=== PATIENT | male | born 1945 | race Hispanic/Latino ===

== ENCOUNTER 2016-07-25 13:28 | Observation (INO) | payer MEDICARE, OTHER ==
[~2016-07-25 13:28] MED LIST: Ferric Sodium Gluconat Complex 62.5 mg/5 ml Vial IVPB SCH
[2016-07-25 14:54] LABS: BASO % 0.7 % (0.0-2.0); EOS # 0.2 K/uL (0.0-0.7); EOS % 2.8 % (0.0-4.0); HEMATOCRIT 17.2 % (35.0-51.0); LYMPH # 1.2 K/uL (1.0-4.3); LYMPH % 17.4 % (20.0-40.0); MEAN CELL VOLUME 94.1 fL (80.0-94.0); MEAN PLATELET VOLUME 7.9 fL (7.2-11.7); MONO # 0.7 K/uL (0.0-0.8); MONO % 10.6 % (0.0-10.0); RED CELL DISTRIBUTION WIDTH 16.5 % (11.5-14.5); WHITE BLOOD COUNT 6.8 K/uL (4.8-10.8)
[2016-07-25 15:04] LABS: POTASSIUM 3.2 mmol/L (3.6-5.2)
[2016-07-25 15:06] LABS: ALB/GLOB RATIO 0.9 (1.0-2.1); BILIRUBIN,TOTAL 0.5 mg/dL (0.2-1.3); TOTAL PROTEIN 6.2 g/dL (6.3-8.3)
[2016-07-25 15:07] LABS: CALCIUM 7.3 mg/dl (8.6-10.4)
[2016-07-25] MEDS ORDERED: [UNRECOGNIZED DRUG - OTHER] IV ONE (15:57)
--- NOTE | 2016-07-25 16:14 | C.PDOC ---
History Of Present Illness 71 y/o male sent to ED from dialysis for evaluation. While at dialysis, dialysis needle got dislodged and before it was noticed he was covered in blood. Pt has no active complaints at this time. No active bleeding in ED. Time Seen by Provider: 07/25/16 14:36 Chief Complaint (Nursing): Medical Clearance History Per: Patient History/Exam Limitations: no limitations Recent travel outside of the [place]: No Past Medical History Reviewed: Historical Data, Nursing Documentation, Vital Signs Vital Signs: Last Vital Signs Temp Pulse 84 07/25/16 15:19 Resp 19 07/25/16 15:19 BP 115/58 L 07/25/16 15:19 Pulse Ox 100 07/25/16 16:17 - Medical History PMH: Anxiety, COPD, HTN, End Stage Renal Disease, Seizures Family History: States: Unknown Family Hx - Social History Hx Alcohol Use: No Hx Substance Use: No Review Of Systems Except As Marked, All Systems Reviewed And Found Negative. Physical Exam - Physical Exam Appears: Non-toxic, No Acute Distress Skin: Warm, Dry, No Rash Head: Atraumatic, Normacephalic Neck: Normal, Normal ROM, Supple Chest: Symmetrical Cardiovascular: Rhythm Regular, No Murmur Respiratory: Normal Breath Sounds, No Rales, No Rhonchi, No Wheezing Gastrointestinal/Abdominal: Normal Exam, Soft, No Tenderness Extremity: Normal ROM, Other (graft to left forearm) Pulses: Left Radial: Normal, Right Radial: Normal Neurological/Psych: Oriented x3, Normal Speech, Normal Cognition ED Course And Treatment - Laboratory Results Result Diagrams: 07/25/16 14:51 07/25/16 14:51 O2 Sat by Pulse Oximetry: 100 (room air) Pulse Ox Interpretation: Normal Progress Note: Discussed case with Garth Barboza, patient usual hemoglobin 7.5 , today 5.7, recommended observation for transfusion during dialysis, admission to hospitalist. Case also discussed with hospitalist Blanca. Disposition - Disposition Disposition: HOSPITALIZED Disposition Time: 16:22 Condition: FAIR - Clinical Impression Clinical Impression: ESRD (end stage renal disease) on dialysis, Anemia - Scribe Statement The provider has reviewed the documentation as recorded by the Amarilis Colin Provider Attestation: All medical record entries made by the Amarilis were at my direction and personally dictated by me. I have reviewed the chart and agree that the record accurately reflects my personal performance of the history, physical exam, medical decision making, and the department course for this patient. I have also personally directed, reviewed, and agree with the discharge instructions and disposition.
--- NOTE | 2016-07-25 17:03 | CP.PCM.HP ---
<Kate Camara - Last Filed: 07/25/16 17:28> History of Present Illness - History of Present Illness History of Present Illness: 71 y/o male sent to ED from dialysis for evaluation. While at dialysis, dialysis needle got dislodged and before it was noticed he was covered in blood. Pt has no active complaints at this time. No active bleeding in ED. He complains of dizziness and mild shortness of breath. He denies chest pain, palpitations, head aches, changes in vision, other symptoms. He complains of chronic pain in the lower ext b/l and numbness in his hands "from diabetes". He has a peg in place but states he does eat and drink. PMHx - dysphagia, DM, COPD, HTN, ESRD, seizures Meds - as listed in meds rec Allergies - morphine Fam Hx - noncontributory Surg - denies but states he is missing a kidney "it just went away) Social - used to smoke a pack a year since 15 years of age he said he quit 2 weeks ago, admits to drug use when he was younger, denies alcohol use but states he used to drink when he was younger Present on Admission - Present on Admission Any Indicators Present on Admission: No Review of Systems - Review of Systems Systems not reviewed;Unavailable: Altered Mental Status, Other Review of Systems: Poor Historian - Constitutional Constitutional: absent: Chills, Fever, Headache - EENT Eyes: absent: Blurred Vision, Change in Vision - Cardiovascular Cardiovascular: absent: Chest Pain, Chest Pain at Rest, Palpitations, Pedal Edema - Respiratory Respiratory: absent: Cough, Dyspnea, Dyspnea on Exertion - Gastrointestinal Gastrointestinal: absent: Abdominal Pain, Constipation, Diarrhea, Nausea, Vomiting - Genitourinary Genitourinary: absent: Change in Urinary Stream, Difficulty Urinating - Neurological Neurological: absent: Headaches, Tingling, Weakness Past Patient History - Infectious Disease Hx of Infectious Diseases: None - Past Social History Smoking Status: Never Smoked - CARDIAC Hx Hypertension: Yes - PULMONARY Hx Chronic Obstructive Pulmonary Disease (COPD): Yes - NEUROLOGICAL Hx Seizures: Yes - RENAL Hx Dialysis: Yes Type of Dialysis Access: LEFT AV SHUNT Date of Last Dialysis Treatment: 07/25/16 - ENDOCRINE/METABOLIC Hx Diabetes Mellitus Type 1: Yes - PSYCHIATRIC Hx Anxiety: Yes Hx Substance Use: No Meds Allergies/Adverse Reactions: Allergies Allergy/AdvReac Type Severity Reaction Status Date / Time morphine Allergy Verified 07/25/16 14:42 Physical Exam - Constitutional Appears: Non-toxic, No Acute Distress, Older Than Stated Age, Chronically Ill - Head Exam Head Exam: ATRAUMATIC, NORMAL INSPECTION - Eye Exam Eye Exam: EOMI, Normal appearance, PERRL Pupil Exam: NORMAL ACCOMODATION Additional comments: Pale conjunctiva - ENT Exam ENT Exam: Mucous Membranes Dry - Respiratory Exam Respiratory Exam: Clear to Auscultation Bilateral, NORMAL BREATHING PATTERN. absent: Respiratory Distress - Cardiovascular Exam Cardiovascular Exam: REGULAR RHYTHM, +S1, +S2 - GI/Abdominal Exam GI & Abdominal Exam: Normal Bowel Sounds, Soft. absent: Distended, Firm, Guarding, Tenderness Additional comments: PEG in place - Extremities Exam Extremities exam: Positive for: normal inspection Additional comments: scrapes on frontal part of tibia b/l lega - Back Exam Back exam: NORMAL INSPECTION. absent: CVA tenderness (L), CVA tenderness (R), paraspinal tenderness - Neurological Exam Neurological exam: Alert, Oriented x3 (uses wheelchair) - Psychiatric Exam Psychiatric exam: Anxious - Skin Skin Exam: Dry, Pallor Results - Vital Signs Recent Vital Signs: Last Vital Signs Temp Pulse 84 07/25/16 15:19 Resp 19 07/25/16 15:19 BP 115/58 L 07/25/16 15:19 Pulse Ox 100 07/25/16 16:17 - Labs Result Diagrams: 07/25/16 14:51 07/25/16 14:51 Assessment & Plan - Assessment and Plan (Free Text) Assessment: 71 year old male with many medical condition from [facility] present with anemia requiring blood transfusion: Anemia Hbg - 5.7 symptomatic due to bleed during dialysis f/u Chest X ray f/u EKG Will get 2 Units PRBC today with dialysis f/u CBC,CMP post transfusion IV Fe per Nephrology ESRD on dialysis Dialysis today Procrit Dr. Barboza, help appreciated Dysphagia Swallow eval Peg in place Pt patient gets PO food/liquid HTN Clonidine 0.1mg PO daily Losartan 50mg PO daily Labetalol 200mg PO TID Isosorbide Dinitrate 20mg PO TID Seizures Phenytoin ER 200mg PO Q12 DM Accuchecks GLipizide 2.5 mg Gabapentin 100mg PO SANDRA BID ISS Crestor 10 mg PO HS PPX Protonix 40mg PO BID no chemical anticoagulation due to blood loss/bleed today <BlancaLevy H - Last Filed: 07/26/16 07:45> Results - Vital Signs Recent Vital Signs: Last Vital Signs Temp 97.5 F L 07/25/16 23:25 Pulse 92 H 07/25/16 23:25 Resp 20 07/25/16 23:25 BP 155/70 H 07/25/16 23:25 Pulse Ox 99 07/25/16 23:25 - Labs Result Diagrams: 07/25/16 14:51 07/25/16 14:51 Labs: Laboratory Results - last 24 hr 07/25/16 07/25/16 07/25/16 15:56 18:20 18:20 POC Glucose (mg/dL) Iron 34 L TIBC 203 L % Saturation 17 L Ferritin 146.0 Blood Type A NEGATIVE Blood Type Confirm A NEGATIVE Antibody Screen Positive Antibody Identification Non Specific Antibody Elution Negative ZAIDA, Poly Interpret Positive H 07/26/16 06:25 POC Glucose (mg/dL) 127 H Iron TIBC % Saturation Ferritin Blood Type Blood Type Confirm Antibody Screen Antibody Identification Elution ZAIDA, Poly Interpret Attending/Attestation - Attestation I have personally seen and examined this patient.: Yes I have fully participated in the care of the patient.: Yes I have reviewed all pertinent clinical information: Yes Notes (Text): Medical Attending: Patient was seen and examined by me. Agree with the above note by the resident Patient was getting his HD when he had extensive bleeding, from what I understand he moved around in the bed during HD and the needle came out. Hgb was decreased and he reported feeling weak and tired. Nephrology is planning on giving PRBC during HD again tonight. Levy Rios
[2016-07-25 18:35] LABS: IRON 34 ug/dL (49-181)
[2016-07-25] MEDS ORDERED: Epoetin Alfa Dialysis 2000 U/ML Inj IV ONE ×2 (19:15→22:00)
[2016-07-25] MEDS ORDERED: Epoetin Alfa 10,000 unit/ml Dialysis IV ONE ×2 (19:15→22:00)
--- NOTE | 2016-07-25 20:52 | CP.PCM.CON ---
History of Present Illness - History of Present Illness History of Present Illness: pt seen and examined, full consult is dictated #[id number] seen in hd receiving 2 units prbc during hd Past Patient History - Infectious Disease Hx of Infectious Diseases: None - Past Social History Smoking Status: Never Smoked - CARDIAC Hx Hypertension: Yes - PULMONARY Hx Chronic Obstructive Pulmonary Disease (COPD): Yes - NEUROLOGICAL Hx Seizures: Yes - RENAL Hx Dialysis: Yes Type of Dialysis Access: LEFT AV SHUNT Date of Last Dialysis Treatment: 07/25/16 - ENDOCRINE/METABOLIC Hx Diabetes Mellitus Type 1: Yes - PSYCHIATRIC Hx Anxiety: Yes Hx Substance Use: No Meds Allergies/Adverse Reactions: Allergies Allergy/AdvReac Type Severity Reaction Status Date / Time morphine Allergy Verified 07/25/16 14:42 - Medications Medications: Current Medications Clonidine HCl (Catapres) 0.1 mg PO DAILY [facility] Docusate Sodium (Colace) 100 mg PO DAILY [facility] Ferric Sodium Gluconate Complex (Ferrlecit) 125 mg IVPB DAILY [facility] Stop: 08/02/16 10:01 Gabapentin (Neurontin) 100 mg PO BID [facility] Glipizide (Glucotrol) 2.5 mg PO BID [facility] Insulin Human Regular (Novolin R) 0 unit SC ACHS [facility] PRN Reason: Protocol Isosorbide Dinitrate (Isordil) 20 mg PO TID [facility] Labetalol HCl (Trandate) 200 mg PO TID [facility] Lactulose (Enulose) 10 gm PO Q8H [facility] Losartan Potassium (Cozaar) 50 mg PO DAILY [facility] Multivitamins (Hexavitamin) 1 tab PO DAILY [facility] Pantoprazole Sodium (Protonix Ec Tab) 40 mg PO BID [facility] Phenytoin Sodium (Dilantin) 200 mg PO Q12H [facility] Rosuvastatin Calcium (Crestor) 10 mg PO HS [facility] Sucralfate (Carafate Tab) 1 gm PO Q8H [facility] Results - Vital Signs Recent Vital Signs: Last Vital Signs Temp 98 F 07/25/16 20:49 Pulse 77 07/25/16 20:49 Resp 18 07/25/16 20:49 BP 149/69 07/25/16 20:49 Pulse Ox 100 07/25/16 17:24 - Labs Result Diagrams: 07/25/16 14:51 07/25/16 14:51 Labs: Laboratory Results - last 24 hr 07/25/16 07/25/16 07/25/16 15:56 18:20 18:20 Iron 34 L TIBC 203 L % Saturation 17 L Ferritin 146.0 Blood Type A NEGATIVE Blood Type Confirm A NEGATIVE Antibody Screen Positive Antibody Identification Non Specific Antibody Elution Negative ZAIDA, Poly Interpret Positive H
--- NOTE | 2016-07-26 00:58 | CON ---
DATE: 07/25/2016 RENAL CONSULTATION The patient is located in room 656, bed A. REQUESTING PHYSICIAN: Dr. Levy Rios. REASON FOR RENAL CONSULTATION: End-stage renal disease, anemia and status post bleeding from the dis lodged needle during dialysis. HISTORY OF PRESENT ILLNESS: The patient is a 71-year-old elderly male with a past medical history significant for longstanding hypertension, diabetes, COPD and seizures, questionable dementia who was in the [facility] for rehabilitation and the patient is being dialyzed 3 juancarlos es a week in [facility]. The patient was sent to Emergency Room for evaluation. As per the patient, he was moving on the chair and his dialysis access needle was dislodged accidentall y and found to have blood and the patient was sent to the Emergency Room for further evaluation . The patient was also complaining of dizziness earlier before this incident and denies any chest pa in, palpitation. Denies any headache. Denies any fever, cough. Denies any nausea, vomiting, diarrh ea. The patient was found to have a hemoglobin about 7.5 on 07/21/2016. His RASHID was recently increa sed to max. PAST MEDICAL HISTORY: Significant for longstanding diabetes, hypertension, COPD, seizures, dysphagia , questionable dementia, end-stage renal disease on hemodialysis about 1-1/2 years. PAST SURGICAL HISTORY: Left upper extremity AV fistula. ALLERGIES: MORPHINE. SOCIAL HISTORY: The patient is an ex-smoker, quit about 20 years ago, and ex-alcohol abuse and also ex-IVDA, last used about 1-1/2 years ago as per the patient. PERSONAL HISTORY: He is single, has 1 child as per the patient, who is and he is with his ex-w aracelis. CURRENT MEDICATIONS: Include as follows: Carafate 1 gram p.o. q. 8 hours, Catapres 0.1 mg p.o. joe y, Colace 100 mg p.o. daily, Cozaar 50 mg p.o. daily, Crestor 10 mg at bedtime, Dilantin 200 mg p.o. q. 12 hours, lactulose 10 grams p.o. q. 8 hours, and 125 mg IV piggyback x 1 dose during dialys is and glipizide 2.4 mg p.o. b.i.d., multivitamin 1 tablet daily and Isordil dinitrate 20 mg p.o. t.i .d. and Neurontin 100 mg p.o. b.i.d., Novolin R for sliding scale, Protonix 40 mg p.o. b.i.d. and lab etalol 200 mg p.o. t.i.d. and Epogen 12,000 units IV x 1 during dialysis. REVIEW OF SYSTEMS: Significant for anemia and dizziness and shortness of breath. All other review o f systems is reviewed and are negative. PHYSICAL EXAMINATION: VITAL SIGNS: As follows: Blood pressure 128/65, pulse 79, respirations 18, temperature 97.7, satura tion 98%. Height 5 feet 9 inches and weight is 165 pounds, BMI 24.4. GENERAL: The patient is a 71-year-old elderly male, moderately built, moderately nourished , not in acute distress. HEENT: Pupils normal, reactive to light and accommodation. Conjunctivae slightly pale. Sclerae ani cteric. Tongue is moist. NECK: Trachea midline. LUNGS: Symmetric on both sides. Bilateral breath sounds present. Clear on auscultation. CARDIOVASCULAR: [place] at the fifth intercostal space in the midclavicular line. S1, S2 audible and t he patient has a midsternal scar present from the previous open heart surgery, possible CABG and also the patient has a pacemaker in the right subclavian area. ABDOMEN: Soft, tympanic. No guarding, no rigidity. No hepatosplenomegaly. CENTRAL NERVOUS SYSTEM: The patient is alert, awake, oriented x 2-3. Sensory and motor system is gr ossly within normal limits. Cranial nerves II-XII grossly intact. EXTREMITIES: No cyanosis, no clubbing, no edema. The patient has healing superficial ulcers in both lower extremities. LABORATORY DATA: Include as follows: As of 07/25/2016, WBC 6.8, hemoglobin 5.7 and hematocrit is 17 .2, and platelets 121. Sodium is 140, potassium 3.2, chloride 100, CO2 of 30, BUN 29, creatinine 3.4 and glucose is 142 and calcium 7.3. Iron is 34 and TIBC 2-3 and saturation is 17, and ferritin is 1 46 and total bilirubin is 0.5, AST 53, ALT 59, alkaline phosphatase is 145. Total protein 6.2, album in is 2.8. SUMMARY: The patient is a 71-year-old elderly male with a history of hypertension, diabete s, COPD, seizures, end-stage renal disease, coronary artery disease status post CABG and status post pacemaker, on hemodialysis for the last 1-1/2 years and quit smoking about a year ago and ex-IVDA, qu it about 1-1/2 years ago, was found to have a hemoglobin about 7.5 on 07/21/2016 on maximum dose of E SA, was sent from the dialysis unit after one of his needles during dialysis after 2 hours and dislod ged and lost some blood during dialysis after dislodging the needle accidentally. The patient is ___ __ frequently on the chair and now with low H and H, and the patient was seen during dialysis and gabbi mattson transfused 2 units of packed RBC during dialysis. 1. End-stage renal disease. Continue hemodialysis 3 times a week, Sunday, , Sunday. 2. Anemia secondary to multifactorial end-stage renal disease, iron deficiency anemia and also recen t blood loss during dialysis when one of the needles were dislodged. Transfuse 2 units of packed RBC during dialysis. The patient was receiving 2 units of packed RBC during dialysis during my visit, a nd also we will continue Epogen 12,000 units 3 times a week. Also, continue Ferrlecit 125 mg daily x 8 doses and also follow up H and H and check stool for occult blood also. 3. Hypertension. Blood pressure is stable. Continue his current blood pressure medication. 4. Hypoalbuminemia, most likely secondary to poor p.o. intake. We will add dietary supplement Gluce rna 1 can p.o. b.i.d. Check PTH and phosphorus level in a.m. and we will follow with you. Thank you for allowing me to participate in your patient's care. Luis Fernando Barboza MD cc: [id number] TT: 07/26/2016 00:57:29 Confirmation # [id number] Dictation # [id number] mn
[2016-07-26 02:02] VITALS: RESP 20
[2016-07-26] MEDS: (Novolin R) Insulin Human Regular 100 units/ml vial SC SCH ×2 (07:30→12:50)
[2016-07-26 08:34] VITALS: O2SAT 98
[2016-07-26 08:49] LABS: BASO # 0.1 K/uL (0.0-0.2); BASO % 1.1 % (0.0-2.0); EOS # 0.2 K/uL (0.0-0.7); HEMATOCRIT 25.5 % (35.0-51.0); LYMPH # 1.4 K/uL (1.0-4.3); LYMPH % 22.8 % (20.0-40.0); MEAN CORPUSCULAR HEMOGLOBIN 30.4 pg (27.0-31.0); MEAN CORPUSCULAR HGB CONC 33.2 g/dL (33.0-37.0); MEAN PLATELET VOLUME 8.1 fL (7.2-11.7); MONO # 0.7 K/uL (0.0-0.8); MONO % 11.5 % (0.0-10.0); RED CELL DISTRIBUTION WIDTH 15.4 % (11.5-14.5); WHITE BLOOD COUNT 6.1 K/uL (4.8-10.8)
[2016-07-26 08:56] LABS: MEAN CELL VOLUME 91.4 fL (80.0-94.0)
[2016-07-26 09:28] LABS: POTASSIUM 3.6 mmol/L (3.6-5.2)
[2016-07-26 09:30] LABS: BILIRUBIN,TOTAL 0.7 mg/dL (0.2-1.3)
[2016-07-26 09:31] LABS: ALB/GLOB RATIO 0.9 (1.0-2.1); PHOSPHOROUS 2.3 mg/dL (2.5-4.5); TOTAL PROTEIN 7.3 g/dL (6.3-8.3)
[2016-07-26 09:32] LABS: MAGNESIUM 1.8 mg/dL (1.6-2.3)
[2016-07-26] MEDS: Pantoprazole 40 mg EC Tab PO SCH ×2 (09:50→18:41)
[2016-07-26] MEDS: GlipiZIDE 2.5 mg Tab PO SCH ×2 (09:55→18:42)
[2016-07-26] MEDS ORDERED: Multivitamin Vitamin B Complex (Nephro-Vite) Tab PO SCH (10:00)
[2016-07-26] MEDS ORDERED: Multiple Vitamins Tab PO SCH (10:00)
[2016-07-26] MEDS ORDERED: Ferric Sodium Gluconat Complex 62.5 mg/5 ml Vial IVPB SCH (10:00)
--- NOTE | 2016-07-26 12:45 | CP.PCM.PN ---
Subjective - Date & Time of Evaluation Date of Evaluation: 07/26/16 Time of Evaluation: 12:44 - Subjective Subjective: pt is seen and examined, follow up consult is dictated #[id number] possible d/c to [facility] today stable from renal stand point Objective - Vital Signs/Intake and Output Vital Signs (last 24 hours): Temp Pulse Resp BP Pulse Ox 98.4 F 84 20 168/81 H 98 07/26/16 07:27 07/26/16 07:27 07/26/16 07:27 07/26/16 07:27 07/26/16 07:27 Intake and Output: 07/26/16 07/26/16 06:59 18:59 Intake Total 750 Output Total 50 Balance 700 - Medications Medications: Current Medications Clonidine HCl (Catapres) 0.1 mg PO DAILY [facility] Last Admin: 07/26/16 09:52 Dose: 0.1 mg Docusate Sodium (Colace) 100 mg PO DAILY [facility] Last Admin: 07/26/16 09:52 Dose: 100 mg Ferric Sodium Gluconate Complex (Ferrlecit) 125 mg IVPB DAILY [facility] Stop: 08/03/16 10:01 Gabapentin (Neurontin) 100 mg PO BID [facility] Last Admin: 07/26/16 09:52 Dose: 100 mg Glipizide (Glucotrol) 2.5 mg PO BID [facility] Last Admin: 07/26/16 09:55 Dose: 2.5 mg Insulin Human Regular (Novolin R) 0 unit SC [facility] PRN Reason: Protocol Last Admin: 07/26/16 07:30 Dose: Not Given Isosorbide Dinitrate (Isordil) 20 mg PO TID [facility] Last Admin: 07/26/16 09:54 Dose: 20 mg Labetalol HCl (Trandate) 200 mg PO TID [facility] Last Admin: 07/26/16 09:55 Dose: 200 mg Lactulose (Enulose) 10 gm PO Q8H [facility] Last Admin: 07/26/16 09:15 Dose: Not Given Losartan Potassium (Cozaar) 50 mg PO DAILY [facility] Last Admin: 07/26/16 09:52 Dose: 50 mg Multivitamins (Hexavitamin) 1 tab PO DAILY [facility] Last Admin: 07/26/16 09:50 Dose: 1 tab Pantoprazole Sodium (Protonix Ec Tab) 40 mg PO BID [facility] Last Admin: 07/26/16 09:50 Dose: 40 mg Phenytoin Sodium (Dilantin) 200 mg PO Q12H [facility] Last Admin: 07/26/16 06:15 Dose: Not Given Rosuvastatin Calcium (Crestor) 10 mg PO HS [facility] Sucralfate (Carafate Tab) 1 gm PO Q8H [facility] Last Admin: 07/26/16 09:50 Dose: 1 gm Vitamin B Complex/Vit C/Folic Acid (Nephro-Laura) 1 tab PO DAILY [facility] Last Admin: 07/26/16 09:50 Dose: 1 tab - Labs Labs: 07/26/16 08:42 07/26/16 08:42
--- NOTE | 2016-07-26 13:34 | CP.PCM.DIS ---
<Abida Palma DO - Last Filed: 07/26/16 14:50> Provider - Provider Date of Admission: 07/25/16 15:52 Attending physician: Levy Rios DO Consults: Dr. Barboza Time Spent in preparation of Discharge (in minutes): 35 Diagnosis - Discharge Diagnosis (1) Anemia Status: Acute Comment: Patient transfused two units PRBC during dialysis with repeat hemoglobin this morning of 8.5. Hospital Course - Lab Results Lab Results: Most Recent Lab Values WBC 6.1 K/uL (4.8-10.8) 07/26/16 08:42 RBC 2.79 Mil/uL (4.40-5.90) L 07/26/16 08:42 Hgb 8.5 g/dL (12.0-18.0) L D 07/26/16 08:42 Hct 25.5 % (35.0-51.0) L 07/26/16 08:42 MCV 91.4 fL (80.0-94.0) D 07/26/16 08:42 MCH 30.4 pg (27.0-31.0) 07/26/16 08:42 MCHC 33.2 g/dL (33.0-37.0) 07/26/16 08:42 RDW 15.4 % (11.5-14.5) H 07/26/16 08:42 Plt Count 136 K/uL (130-400) 07/26/16 08:42 MPV 8.1 fL (7.2-11.7) 07/26/16 08:42 Neut % (Auto) 61.6 % (50.0-75.0) 07/26/16 08:42 Lymph % (Auto) 22.8 % (20.0-40.0) 07/26/16 08:42 [place] % (Auto) 11.5 % (0.0-10.0) H 07/26/16 08:42 Eos % (Auto) 3.0 % (0.0-4.0) 07/26/16 08:42 Baso % (Auto) 1.1 % (0.0-2.0) 07/26/16 08:42 Neut # 3.7 K/uL (1.8-7.0) 07/26/16 08:42 Lymph # 1.4 K/uL (1.0-4.3) 07/26/16 08:42 [place] # 0.7 K/uL (0.0-0.8) 07/26/16 08:42 Eos # 0.2 K/uL (0.0-0.7) 07/26/16 08:42 Baso # 0.1 K/uL (0.0-0.2) 07/26/16 08:42 Differential Comment 07/25/16 14:51 Sodium 139 mmol/L (132-148) 07/26/16 08:42 Potassium 3.6 mmol/L (3.6-5.2) 07/26/16 08:42 Chloride 97 mmol/L (98-107) L 07/26/16 08:42 Carbon Dioxide 32 mmol/L (22-30) H 07/26/16 08:42 Anion Gap 14 (10-20) 07/26/16 08:42 BUN 24 mg/dL (9-20) H 07/26/16 08:42 Creatinine 3.3 MG/DL (0.8-1.5) H 07/26/16 08:42 Est GFR ( Amer) 22 07/26/16 08:42 Est GFR (Non-Af Amer) 19 07/26/16 08:42 POC Glucose (mg/dL) 213 mg/dL (65-110) H 07/26/16 11:32 Random Glucose 121 mg/dL (75-110) H 07/26/16 08:42 Calcium 8.0 mg/dl (8.6-10.4) L 07/26/16 08:42 Phosphorus 2.3 mg/dL (2.5-4.5) L 07/26/16 08:42 Magnesium 1.8 mg/dL (1.6-2.3) 07/26/16 08:42 Iron 34 ug/dL (49-181) L 07/25/16 18:20 TIBC 203 ug/dL (250-450) L 07/25/16 18:20 % Saturation 17 (20-55) L 07/25/16 18:20 Ferritin 146.0 ng/mL 07/25/16 18:20 Total Bilirubin 0.7 mg/dL (0.2-1.3) 07/26/16 08:42 AST 70 U/L (17-59) H D 07/26/16 08:42 ALT 62 U/L (21-72) 07/26/16 08:42 Alkaline Phosphatase 160 U/L (38-126) H 07/26/16 08:42 Total Protein 7.3 g/dL (6.3-8.3) 07/26/16 08:42 Albumin 3.5 g/dL (3.5-5.0) D 07/26/16 08:42 Globulin 3.8 gm/dL (2.2-3.9) 07/26/16 08:42 Albumin/Globulin Ratio 0.9 (1.0-2.1) L 07/26/16 08:42 Blood Type A NEGATIVE 07/25/16 15:56 Blood Type Confirm A NEGATIVE 07/25/16 15:56 Antibody Screen Positive 07/25/16 15:56 Antibody Identification Non Specific Antibody 07/25/16 15:56 Elution Negative 07/25/16 15:56 ZAIDA, Poly Interpret Positive (NEGATIVE) H 07/25/16 15:56 - Hospital Course Hospital Course: On Admission: 71 y/o male sent to ED from dialysis for evaluation. While at dialysis, dialysis needle got dislodged and before it was noticed he was covered in blood. Pt has no active complaints at this time. No active bleeding in ED. He complains of dizziness and mild shortness of breath. He denies chest pain, palpitations, head aches, changes in vision, other symptoms. He complains of chronic pain in the lower ext b/l and numbness in his hands "from diabetes". He has a peg in place but states he does eat and drink. During hospitalization: Patient was seen by his qc lab technician Dr. Barboza who recommended continuing patient's ferrlecit, transfusing 2 units of PRBC, adding dietary supplements. Patient had dialysis while in the hospital with transfusion of 2 units PRBC. Patient was evaluated by speech language pathology for swallow eval. Patient passed swallow eval with recommendation of pureed food with thin liquids. Recommend removal of PEG in future. On Discharge: Patient is stable for discharge back to [facility] per Dr. Rios. Patient is to resume all of his home medications and his dialysis schedule. Patient will need follow up with Dr. Barboza on discharge. Patient is to return to the ED if symptoms reoccur or worsen. This is only a summary of patient's hospitalization, for more detail please see complete record. Discharge Exam - Head Exam Head Exam: ATRAUMATIC, NORMAL INSPECTION - Eye Exam Eye Exam: EOMI - ENT Exam ENT Exam: Mucous Membranes Moist - Respiratory Exam Respiratory Exam: Clear to PA & Lateral, NORMAL BREATHING PATTERN - Cardiovascular Exam Cardiovascular Exam: +S1, +S2 - GI/Abdominal Exam GI & Abdominal Exam: Normal Bowel Sounds, Soft. absent: Tenderness Additional comments: PEG - Extremities Exam Additional comments: AVF left arm with palpable thrill scattered lesions/ scrapes bilateral lower extremities- tibia mild edema b/l lower extremities to ankle - Neurological Exam Neurological exam: Alert - Psychiatric Exam Psychiatric exam: Normal Affect - Skin Skin Exam: Pallor, Warm Additional comments: well healed midline scar on chest Discharge Plan - Follow Up Plan Condition: FAIR Disposition: REHAB FACILITY/REHAB UNIT Additional Instructions: Patient is stable for discharge back to [facility] per Dr. Rios. Patient is to resume all of his home medications and his dialysis schedule. Patient will need follow up with Dr. Barboza on discharge. Patient is to return to the ED if symptoms reoccur or worsen. Referrals: Luis Fernando Barboza MD [Staff Provider] - <Levy Rios - Last Filed: 07/26/16 16:44> Provider - Provider Date of Admission: 07/25/16 15:52 Attending physician: Levy Rios DO Hospital Course - Lab Results Lab Results: Most Recent Lab Values WBC 6.1 K/uL (4.8-10.8) 07/26/16 08:42 RBC 2.79 Mil/uL (4.40-5.90) L 07/26/16 08:42 Hgb 8.5 g/dL (12.0-18.0) L D 07/26/16 08:42 Hct 25.5 % (35.0-51.0) L 07/26/16 08:42 MCV 91.4 fL (80.0-94.0) D 07/26/16 08:42 MCH 30.4 pg (27.0-31.0) 07/26/16 08:42 MCHC 33.2 g/dL (33.0-37.0) 07/26/16 08:42 RDW 15.4 % (11.5-14.5) H 07/26/16 08:42 Plt Count 136 K/uL (130-400) 07/26/16 08:42 MPV 8.1 fL (7.2-11.7) 07/26/16 08:42 Neut % (Auto) 61.6 % (50.0-75.0) 07/26/16 08:42 Lymph % (Auto) 22.8 % (20.0-40.0) 07/26/16 08:42 [place] % (Auto) 11.5 % (0.0-10.0) H 07/26/16 08:42 Eos % (Auto) 3.0 % (0.0-4.0) 07/26/16 08:42 Baso % (Auto) 1.1 % (0.0-2.0) 07/26/16 08:42 Neut # 3.7 K/uL (1.8-7.0) 07/26/16 08:42 Lymph # 1.4 K/uL (1.0-4.3) 07/26/16 08:42 [place] # 0.7 K/uL (0.0-0.8) 07/26/16 08:42 Eos # 0.2 K/uL (0.0-0.7) 07/26/16 08:42 Baso # 0.1 K/uL (0.0-0.2) 07/26/16 08:42 Differential Comment 07/25/16 14:51 Sodium 139 mmol/L (132-148) 07/26/16 08:42 Potassium 3.6 mmol/L (3.6-5.2) 07/26/16 08:42 Chloride 97 mmol/L (98-107) L 07/26/16 08:42 Carbon Dioxide 32 mmol/L (22-30) H 07/26/16 08:42 Anion Gap 14 (10-20) 07/26/16 08:42 BUN 24 mg/dL (9-20) H 07/26/16 08:42 Creatinine 3.3 MG/DL (0.8-1.5) H 07/26/16 08:42 Est GFR ( Amer) 22 07/26/16 08:42 Est GFR (Non-Af Amer) 19 07/26/16 08:42 POC Glucose (mg/dL) 213 mg/dL (65-110) H 07/26/16 11:32 Random Glucose 121 mg/dL (75-110) H 07/26/16 08:42 Calcium 8.0 mg/dl (8.6-10.4) L 07/26/16 08:42 Phosphorus 2.3 mg/dL (2.5-4.5) L 07/26/16 08:42 Magnesium 1.8 mg/dL (1.6-2.3) 07/26/16 08:42 Iron 34 ug/dL (49-181) L 07/25/16 18:20 TIBC 203 ug/dL (250-450) L 07/25/16 18:20 % Saturation 17 (20-55) L 07/25/16 18:20 Ferritin 146.0 ng/mL 07/25/16 18:20 Total Bilirubin 0.7 mg/dL (0.2-1.3) 07/26/16 08:42 AST 70 U/L (17-59) H D 07/26/16 08:42 ALT 62 U/L (21-72) 07/26/16 08:42 Alkaline Phosphatase 160 U/L (38-126) H 07/26/16 08:42 Total Protein 7.3 g/dL (6.3-8.3) 07/26/16 08:42 Albumin 3.5 g/dL (3.5-5.0) D 07/26/16 08:42 Globulin 3.8 gm/dL (2.2-3.9) 07/26/16 08:42 Albumin/Globulin Ratio 0.9 (1.0-2.1) L 07/26/16 08:42 Blood Type A NEGATIVE 07/25/16 15:56 Blood Type Confirm A NEGATIVE 07/25/16 15:56 Antibody Screen Positive 07/25/16 15:56 Antibody Identification Non Specific Antibody 07/25/16 15:56 Elution Negative 07/25/16 15:56 ZAIDA, Poly Interpret Positive (NEGATIVE) H 07/25/16 15:56 Attending/Attestation - Attestation I have personally seen and examined this patient.: Yes I have fully participated in the care of the patient.: Yes I have reviewed all pertinent clinical information, including history, physical exam and plan: Yes Notes (Text): 07/26/16 16:41 Medical attending: Patient was seen and examined by me, agree with the above note by registered medical transcriptionist. Patient is very interactive and talkative with us however he does appear to have some baseline dementia and is times very confused when he tries to answer some questions. The patient had hemodialysis again last night and this time also had 2 units of PRBCs given. During exam we also inspected the patient's left arm, it appeared to be clean dry and intact. There is a palpable as well as auscultated bowl early heard on exam Thank you very much, 07/26/16 16:42
[2016-07-26 16:48] VITALS: BP 131/49; PULSE 71; TEMP 97.5
--- NOTE | 2016-07-26 23:19 | PN ---
DATE: 07/26/2016 LOCATION: The patient is located in room 656, bed A. REQUESTED BY: Dr. Levy Rios. REASON FOR FOLLOWUP: End-stage renal disease and for continuation of the hemodialysis. HISTORY OF PRESENT ILLNESS: The patient is a 71-year-old elderly male with a past medical history significant for longstanding hypertension, diabetes, ex-smoker, ex-IV , end-stage renal disease on hemodialysis for the last ago, who is a resident of [facility], was sent from the dialysis unit yesterday after an accident. They dislodged his needle during dialysis and lost quite a bit of blood and the patient was found to be anemic. His hemoglobin dropped from 7. 5 to about 5.5 and patient underwent hemodialysis last night and received 2 units of packed RBC. The patient is feeling much better today, not in acute distress and denies any headache, dizziness. Den ies any chest pain, palpitation. Denies any fever, cough, no abdominal pain, no nausea, vomiting. T he patient complains of weakness in both lower extremities. PHYSICAL EXAMINATION: VITAL SIGNS: This morning as follows: Blood pressure 168/81, pulse 84, respirations 20, temperature 98.4, saturation 98%. Height 5 feet 9 inches and weight 165 pounds. GENERAL: The patient is a 71-year-old male, well built, well nourished, not in acute distress. HEENT: Pupils normal, reactive to light and accommodation. Conjunctivae pink. Sclerae anicteric. Tongue is moist. NECK: Trachea is midline. LUNGS: Symmetric on both sides. Bilateral breath sounds present. Clear on auscultation. CARDIOVASCULAR: [place] in the fifth intercostal space midclavicular line. S1 and S2 audible. No murm ur, no gallop. 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 ABDOMEN: Normal in appearance, soft, tympanic. No guarding, no rigidity. No hepatosplenomegaly. CENTRAL NERVOUS SYSTEM: The patient is alert, awake, oriented x 3, is slow in response, but responds appropriately. Sensory and motor system is grossly within normal limits. Cranial nerves II through XII grossly intact. EXTREMITIES: No cyanosis, no clubbing, no edema. CURRENT MEDICATIONS: Include as follows: Carafate 1 gram p.o. q. 8 hours, Catapres 0.1 mg p.o. joe y, Colace 100 mg p.o. daily, Cozaar 50 mg p.o. daily, Crestor 10 mg at bedtime and Dilantin 200 mg p. o. q. 12 hours, lactulose 10 grams p.o. q. 8 hours, Ferrlecit 125 mg IV piggyback daily and Glucotrol 2.5 mg p.o. b.i.d., multivitamin 1 tablet daily, Isordil 20 mg p.o. t.i.d., Nephrocaps 1 tablet joe y, Neurontin 100 mg p.o. b.i.d., Novolog sliding scale, Protonix 40 mg p.o. b.i.d. and Toradol 15 mg IV x 1 and labetalol 200 mg p.o. t.i.d. LABORATORY DATA: As of 07/26/2016, WBC 6.1, hemoglobin 8.5 after 2 units of transfusion and hematocr it is 25.5, platelets 136, sodium 139, potassium 3.6, chloride 97, CO2 32, BUN 24, creatinine 3.3, an d glucose 121, calcium 8, phosphorus 2.3, magnesium 1.8 and iron is 34, TIBC 203 and saturation is 17 , and ferritin is 146, total bilirubin 0.7, AST 70, ALT 62, alkaline phosphatase 160, total protein 7 .3, albumin is 3.5. SUMMARY: The patient is a 71-year-old elderly male with a history of hypertension, diabete s, seizure disorder, hyperlipidemia, chronic obstructive pulmonary disease, end-stage renal disease, on hemodialysis 3 times a week, Sunday, , Sunday, with anemia. 7.5 hemoglobin on 2016. Subsequently, the patient had bleeding from the dislodgement of the venous needle during hemod ialysis from the access site when the patient is frequently turning on the chair and found to have a hemoglobin of 5.7 in the Emergency Room and admitted for hemodialysis. IMPRESSION AND PLAN: 1. End-stage renal disease. Continue hemodialysis 3 times a week, Sunday, , Sunday. 2. Hypertension. Blood pressure is stable. Continue his current medications, labetalol, Isordil, C ozaar and clonidine. 3. Anemia secondary to renal failure, iron deficiency and also bleeding from the dislodgement of the venous needle during dialysis and loss of blood. 4. Diabetes. Sugars are under control. DISCHARGE: The patient is stable from the renal standpoint for [facility]. We will follow up patient in the dialysis unit. We will monitor H and H. Thank you for allowing me to participate in your patient's care. Luis Fernando Barboza MD cc: [id number] TT: 07/26/2016 23:18:00 Confirmation # [id number] Dictation # [id number] mn
== END 2016-07-26 20:30 ==
LOC: C.ER 13:28 → C.9E 15:52 → C.6T 19:28
PROVIDERS: ADMIT Hospitalist; ATTEND Hospitalist
DX: T82.42XA Displacement of vascular dialysis catheter, initial encounter (principal); I12.0 Hypertensive chronic kidney disease with stage 5 chronic kidney disease or end stage renal disease; E11.22 Type 2 diabetes mellitus with diabetic chronic kidney disease; N18.6 End stage renal disease; Z99.2 Dependence on renal dialysis; Z79.4 Long term (current) use of insulin; D50.9 Iron deficiency anemia, unspecified; E78.5 Hyperlipidemia, unspecified; G40.909 Epilepsy, unspecified, not intractable, without status epilepticus; Z87.891 Personal history of nicotine dependence; D63.1 Anemia in chronic kidney disease
CPT/HCPCS: 36415; 36430; 80053; 82728; 82948; 83540; 83550; 83735; 83970; 84100; 85025; 86850; 86870; 86880; 86900; 86920; 86922; 92610; 97116; 97162; 99282; G0378; G8978; G8979; G8996; G8997; J1885; J2916; P9051; Q4081